=== PATIENT | male | born 1960 | race Caucasian/White ===

== ENCOUNTER → 2017-08-14 | Outpatient (CLI) | payer BC, SELFPAY | PROVIDERS: Visit Provider Family Medicine | DX: I10 Essential (primary) hypertension (principal); E78.5 Hyperlipidemia, unspecified | CPT/HCPCS: 36415; 80053; 80061 ==

== ENCOUNTER → 2018-10-28 11:33 | Outpatient (CLI) | payer BC, SELFPAY ==
--- NOTE | 2018-10-28 11:38 | XR_ITS ---
XR chest 2V HISTORY: ITS.REASON: BRONCHITIS ORDERING PHYSICIAN: Erika Bernabe PATIENT AGE: 58 years COMPARISON: 09/03/2016 FINDINGS: The cardiomediastinal silhouette and pulmonary vascularity are within normal limits. There is elevated left hemidiaphragm with left basilar atelectasis. The lungs are otherwise clear. No acute bony findings. IMPRESSION: Elevated left hemidiaphragm with left basilar atelectasis. No change with no acute finding.
== END ==
PROVIDERS: PCP Family Medicine; Visit Provider Nurse Practitioner Family
DX: J40 Bronchitis, not specified as acute or chronic (principal)
CPT/HCPCS: 71046

== ENCOUNTER → 2018-11-27 10:25 | Outpatient (CLI) | payer BC, SELFPAY ==
--- NOTE | 2018-11-27 10:35 | XR_ITS ---
XR chest 2V HISTORY: Follow-up abnormal chest x-ray, cough, bronchitis ITS.REASON: ABNORMAL CXR ORDERING PHYSICIAN: Erika Bernabe PATIENT AGE: 58 years COMPARISON: 10/28/2018 FINDINGS: There remains elevated left hemidiaphragm with left basilar atelectatic changes. Cardiovascular structures are unremarkable and the lungs are clear bilaterally. No acute bony findings. IMPRESSION: No change elevated left hemidiaphragm with left basilar atelectasis. No change with no acute finding
== END ==
PROVIDERS: PCP Family Medicine; Visit Provider Nurse Practitioner Family
DX: R93.89 Abnormal findings on diagnostic imaging of other specified body structures (principal)
CPT/HCPCS: 71046

== ENCOUNTER → 2019-07-07 09:47 | Outpatient (CLI) | payer BC, SELFPAY ==
--- NOTE | 2019-07-07 09:52 | XR_ITS ---
PROCEDURE: XR CHEST 2V CLINICAL HISTORY: RT RIB PAIN Right-sided chest pain COMPARISON: CXR CHEST(2 VIEWS-NOT PORTABLE) from 09/03/2016 CXR2V XR chest 2V from 10/28/2018 CXR2V XR chest 2V from 11/27/2018 XR RIBS RT 2V from 07/07/2019 FINDINGS: Left hemidiaphragm is elevated with left basilar atelectatic changes. The remaining lungs are clear. Unremarkable cardiovascular structures Multiple views of the right ribs show mildly displaced fractures involving the anterolateral aspect of the right, 5th, 6th, 7th, and 8th ribs. No obvious pneumothorax.. There is a small right effusion IMPRESSION: Mildly displaced fractures of the right 5th through 8th ribs with small right pleural effusion Dictated by: Chavez Huber MD 07/07/2019 11:31 Electronically signed by Chavez Huber MD in [place] 07/07/2019 11:31
== END ==
PROVIDERS: PCP Family Medicine; Visit Provider Physician Assistant
DX: R07.81 Pleurodynia (principal)
CPT/HCPCS: 71046; 71100

== ENCOUNTER → 2019-10-05 09:11 | Outpatient (CLI) | payer BC, SELFPAY ==
--- NOTE | 2019-10-05 09:17 | XR_ITS ---
PROCEDURE: XR FOOT WT BEARING RT 3V CLINICAL INDICATION: foot pain COMPARISON: FTL3 FOOT-LT-3 VIEWS from 07/04/2015 views were obtained weight-bearing. FINDINGS: No fracture or dislocation. No lytic or blastic change. There is normal mineralization. There is mild osteoarthritis at the 1st metatarsophalangeal joint. Degenerative plantar calcaneal spurring is noted. 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 Other findings:None. IMPRESSION: No acute findings. Dictated by: Gerard Hair 10/05/2019 12:48 Electronically signed by Gerard Hair in [place] 10/05/2019 12:48
--- NOTE | 2019-10-05 09:17 | XR_ITS ---
PROCEDURE: XR FOOT WT BEARING LT 3V CLINICAL INDICATION: foot pain COMPARISON: FTL3 FOOT-LT-3 VIEWS from 07/04/2015 views were obtained FINDINGS: No fracture or dislocation. No lytic or blastic change. There is normal mineralization. Weight-bearing. There is mild hallux valgus deformity and there is [id number] osteoarthritis at the 1st metatarsophalangeal joint. 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 Other findings:A tiny degenerative plantar calcaneal spur is noted. IMPRESSION: No acute findings. Hallux valgus deformity with osteoarthritis and other degenerative findings as described. Dictated by: Gerard Hair 10/05/2019 12:50 Electronically signed by Gerard Hair in [place] 10/05/2019 12:50
== END ==
PROVIDERS: PCP Family Medicine; Visit Provider Podiatrist
DX: M79.672 Pain in left foot (principal); M79.671 Pain in right foot
CPT/HCPCS: 73630

== ENCOUNTER → 2019-10-12 12:31 | Outpatient (CLI) | payer BC, SELFPAY ==
--- NOTE | 2019-10-12 12:31 | US_ITS ---
APPROVED REPORT Exam Type: Lower Extremity Segmental Pressures [employer] Specialist: Miryam Prince RVT Indications Cold extremities Risk Factors Hypertension Hyperlipidemia Pressures/Indices Right Indices Left Indices Brachial 194.00 mmHg Brachial 194.00 mmHg Low Thigh 200.00 mmHg 1.03 Low Thigh 196.00 mmHg 1.01 Calf 210.00 mmHg 1.08 Calf 201.00 mmHg 1.04 Ankle(PT) 211.00 mmHg 1.09 Ankle(PT) 194.00 mmHg 1.00 Ankle(DP) 205.00 mmHg 1.06 Ankle(DP) 204.00 mmHg 1.05 Digit 144.00 mmHg 0.74 Digit 140.00 mmHg 0.72 Findings RT DWIGHT:1.09 LT DWIGHT:1.00 RT TBI:0.74 LT TBI:0.72 NORMAL PULSES BILATERAL NORMAL WAVEFORMS BILATERAL Conclusion Normal appearing resting noninvasive lower extremity arterial study. Electronically signed by : Chavez Huber MD 10/13/2019 18:09:50
== END ==
PROVIDERS: PCP Family Medicine; Visit Provider Podiatrist
DX: R09.89 Other specified symptoms and signs involving the circulatory and respiratory systems (principal); R20.8 Other disturbances of skin sensation
CPT/HCPCS: 93923

== ENCOUNTER → 2021-03-16 11:15 | Outpatient (CLI) | payer BC, SELFPAY ==
--- NOTE | 2021-03-16 11:20 | XR_ITS ---
PROCEDURE: XR HIP LT 2-3V W/PELVIS CLINICAL INDICATION: LT HIP PAIN COMPARISON: No exams were available for comparison FINDINGS: AP view of the pelvis shows mild osteoarthritic changes of both hips. AP and abduction ule views of the left hip show no fracture or dislocation. No lytic or blastic change. IMPRESSION: Mild osteoarthritis of the hips Dictated by: Chavez Huber MD 03/16/2021 12:34 Chavez Huber MD in [place] 03/16/2021 12:34
== END ==
PROVIDERS: PCP Family Medicine; Visit Provider Family Medicine
DX: M25.552 Pain in left hip (principal)
CPT/HCPCS: 73502

== ENCOUNTER 2021-04-12 11:15 | Emergency (ER) | payer BC, SELFPAY ==
[2021-04-12 13:13] VITALS: BP 132/67; PULSE 76; RESP 16; TEMP 36.9; O2SAT 98; BMI 29.7
[2021-04-12 13:30] VITALS: BP 130/71; PULSE 71; RESP 18; TEMP 36.8; O2SAT 97
--- NOTE | 2021-04-12 13:31 | HMH.EDUTC ---
[facility] Disposition Clinical Impression: Encounter for laboratory testing for COVID-19 virus Sinusitis Qualifiers: Sinusitis location: unspecified location Chronicity: unspecified Qualified Code(s): J32.9 - Chronic sinusitis, unspecified Disposition: Home, Self-Care Condition on Discharge: Good Instructions: Sinusitis, DI for Sinusitis Additional Instructions: *Monitor Temp, Over the counter Motrin or Tylenol as directed/as needed Tylenol every 4 hours and Motrin every 6 hours (as long as your family doctor has told you that you can take it) for fever or pain. and straight to ER if unable to lower temp less than 101.0 after medication given *Warm salt water gargles may help to soothe the throat *Throat Lozenges *Warm fluids like tea with honey may help to soothe the throat *Sleep elevated *Humidifier/Vaporizer *Take medication as prescribed Follow up IMMEDIATELY for new or worsening symptoms or no Noticeable improvement over the next 48-72 hours. 911 for difficulty breathing or swallowing You were tested for today for COVID19 your test result should be back in the next 24-48 hours, you may call to the [facility] to see if your test results are back in the next 48 hours [phone] [facility] hours are 9am-9pm You was given a handout with instructions for Self Quarantine and Self isolation for while you wait on test results and what to do if they are positive If you are positive the Health Dept will be contacting you also Make sure to take your Vitamins Vit. C Vit D and Zinc if you can take them Prescriptions: Amoxicillin/Potassium Clav [Augmentin 875-125 Tablet] 1 tab PO Q12H 7 Days #14 tab Transmission Status: Received by [id number] Benzonatate [Tessalon Perle 100mg Cap*] 100 mg PO TID PRN #30 cap PRN Reason: Cough Transmission Status: Received by [id number] Referrals: Cristino Padgett MD [Primary Care Provider] - Forms: Work/School Release Time of Disposition: 13:40 Medical Decision Making - Kendrick Inquiry Pt receiving controlled substance: No Kendrick was queried for this patient: No Vital Signs: 04/12/21 13:13 04/12/21 13:30 Temperature 98.4 F 98.3 F Temperature Source Temporal Artery Scan Oral Pulse Rate 71 Pulse Rate [Right Brachial] 76 Respiratory Rate 16 18 Blood Pressure 130/71 Blood Pressure [Right Arm] 132/67 Blood Pressure Mean [Right Arm] 88 Blood Pressure Source [Right Arm] Automatic Cuff Blood Pressure Position [Right Arm] Sitting 02 Sat by Pulse Oximetry 98 Oxygen Delivery Method Room Air Room Air [facility] HPI - General Stated complaint: cough Time Seen by Provider: 04/12/21 13:32 Mode of Arrival: Ambulatory Source of Information: Patient Limitations: No Limitations Description of Symptoms (Recalled from Triage Doc. by RN): cough, chest congestion, sinus drainage HEENT Symptoms (Recalled from RN notes): No Resp Symptoms (Recalled from RN notes): Yes Skin Symptoms (Recalled from RN notes): Yes MS Symptoms (Recalled from RN notes): No Functional Status (Recalled from RN notes): n/a - History of Present Illness Provider Complaint: Patient state that he has been having trouble out of his sinuses for a couple of weeks State that it has been drianing in the back of his throat and making his throat sore and feels like pressure in his ears State that he came in to get checked checked out State that he has not been around anyone that he is aware of with COVID but still wanted to get tested - Related Data Home Medications Medication Instructions Recorded Confirmed atorvastatin 40 mg tablet 20 mg PO DAILY tab 10/05/19 04/12/21 lisinopril 20 mg tablet 20 mg PO DAILY tab 10/05/19 04/12/21 meloxicam 15 mg tablet 15 mg PO DAILY tab 10/05/19 04/12/21 Previous Rx's Medication Instructions Recorded diclofenac sodium 1 % topical gel 4 g TOPICAL QID PRN #100 g 10/05/19 Amoxicillin/Potassium Clav 1 tab PO Q12H 7 Days #14 tab 04/12/21 [Augmentin 875-125 Tablet*
== END 2021-04-12 13:49 | disposition home or self-care (01) ==
PROVIDERS: Emergency Provider Nurse Practitioner; PCP Family Medicine
DX: J32.9 Chronic sinusitis, unspecified (principal); Z20.822 Contact with and (suspected) exposure to COVID-19
CPT/HCPCS: 99202; G0463; U0003

== ENCOUNTER → 2021-04-24 08:03 | Outpatient (CLI) | payer BC, SELFPAY ==
--- NOTE | 2021-04-24 08:08 | MR_ITS ---
PROCEDURE INFORMATION: Exam: MR Left Lower Extremity Joint Without Contrast; Hip Exam date and time: 04/24/2021 8:08 AM Age: 60 years old Clinical indication: Patient HX: Left hip pain x 2 months without known injury. ; Additional info: Lt hip pain TECHNIQUE: Imaging protocol: MR of the Left lower extremity joint without contrast. Exam focused on the hip. COMPARISON: 1. CR XR HIP LT 2-3V W/PELVIS 03/16/2021 11:[address] ABD PELVIS W/ CONTRAST 04/09/2017 9:30 AM (report not available) FINDINGS: Limitations: The pelvis is incompletely included on axial and sagittal sequences due to being a hip protocol. Bones and cartilage: There is extensive abnormal bone marrow signal extending from the lower lumbar spine, throughout the pelvis, and into the proximal femurs. The appearance is most consistent with metastatic disease. Tumor extends through the left iliac bone cortex laterally in the supra-acetabular region and into the adjacent soft tissues. On the coronal sequence where more of the pelvis is included, there appears to be additional extension of tumor through the medial left ilium and into the intrapelvic soft tissues. Joint spaces: No significant joint effusion. Labrum: Unremarkable. No tear. TENDONS: Tendons of iliopsoas group: Unremarkable. No evidence of tear. Tendons of medial compartment of thigh: Unremarkable. No evidence of tear. Tendons of lateral rotators of hip: Unremarkable. No evidence of tear. Tendons of gluteal group: Unremarkable. No evidence of tear. Muscles: Unremarkable. Soft tissues: See Bones and cartilage finding. Moderate edema involves the subcutaneous fat. Intraperitoneal space: A mild amount of free fluid is present in the pelvis, which is more than typically seen in a male patient. Bladder: The bladder wall is diffusely thickened, which has a nonspecific appearance. Other findings: Reassessment of significant sigmoid colon abnormalities seen in 2017 is significantly limited due to peristalsis. 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 COMMENTS: A request for a conference call with the ordering provider or ordering provider's care team was submitted at 12:22 PM EDT on 04/25/2021.
== END ==
PROVIDERS: PCP Family Medicine; Visit Provider Orthopaedic Surgery
DX: M25.552 Pain in left hip (principal)
CPT/HCPCS: 73721

== ENCOUNTER → 2021-04-25 10:32 | Outpatient (CLI) | payer BC, SELFPAY ==
--- NOTE | 2021-04-25 10:34 | CA_ITS ---
APPROVED REPORT EXAM: Comprehensive 2D, Doppler, and color-flow Echocardiogram Options Trader: Vonda Mari, RCS, RVS Ht: 5 ft 9 in Wt: 203lbs BSA: 2.08 BP: 132/67 mmHg Indications: HTN, HLD, Murmur Echo Enhancing Agent Comments: Low parasternal windows. 2D Dimensions IVSd 0.82 cm LVEF (Visual) 73.60 % PWd 0.94 cm LA Volume 80.80 mL LVDd 4.43 cm LA Volume Index 38.80 mL/m2 (M/F) 16-34 LVDs 2.80 cm Aortic Root 3.11 cm Left Atrium 4.04 cm LVOT 2.04 cm (M/F) 1.5-2.5 LV Diastology E Decel Time 237.00 (160-240 msec) E/A Ratio 1.33 MED E' 12.30 (< 7 cm/sec) MED A' 13.20 cm/s E'/MED E' Ratio 10.59 (>14) LAT E' 10.20 (<10 cm/sec) LAT A' 6.90 cm/s E/LAT E' Ratio 12.77 (>14) Aortic Valve LVOT Max 145.00 (70-110 cm/s) LVOT VTI 28.68 cm AoV Peak Jose. 212.00 (50-130 cm/s) AO Peak GR. 17.90 mmHg AO Mean GR. 9.20 (<5 mmHg) AO VTI 40.55 (18-25 cm) DANNIELLE (VTI) 2.31 (2.5-4.5 cm2) Mitral Valve MV A Velocity 98.00 (40-130 cm/s) E/A Ratio 1.33 MV Decel. Time 237.00 (160-240 ms) Pulmonary Valve PV Peak Velocity 81.00 (50-150 cm/s) Tricuspid Valve TR P. Velocity 343.00 cm/s RAP Estimate 10.00 mmHg RVSP 56.90 mmHg Left Ventricle Left atrium is mildly enlarged, left ventricle is normal size, mild concentric left ventricular hypertrophy, visually estimated ejection fraction 55% with no regional wall motion abnormality, diastolic parameters are within normal range. Right Ventricle Right atrium and right ventricle are mildly enlarged with normal contractility. Aortic Valve Aortic valve is thickened and calcified without Doppler evidence of aortic stenosis or aortic insufficiency. Mitral Valve Mitral valve is grossly normal, there is mild mitral regurgitation. Tricuspid Valve Tricuspid grossly normal, there is mild tricuspid regurgitation, calculated ventricular systolic pressure is 55 mmHg. Pulmonic Valve Pulmonic valve is poorly visualized. Great Vessels Aortic root is normal size. Inferior vena cava is mildly dilated without significant inspiratory collapse. Pericardium No significant pericardial effusion noted. Conclusion 1. Mild biatrial enlargement, normal left ventricular size, visually estimated ejection fraction 85% with no regional wall motion abnormality, diastolic parameters are within normal range. 2. Mildly enlarged right ventricle with normal contractility. 3. Mild mitral and tricuspid regurgitation, calculated right ventricular systolic pressure is 55 mmHg. 4. No significant pericardial effusion noted, inferior vena cava is mildly dilated with significant inspiratory collapse. Electronically signed by : Deshawn Ponce MD 04/26/2021 14:56:50
== END ==
PROVIDERS: PCP Family Medicine; Visit Provider Family Medicine
DX: I10 Essential (primary) hypertension (principal)
CPT/HCPCS: 93306

== ENCOUNTER → 2021-04-26 12:06 | Outpatient (CLI) | payer BC, SELFPAY ==
--- NOTE | 2021-04-26 12:12 | CT_ITS ---
PROCEDURE: CT ABDOMEN PELVIS w CON CLINICAL INDICATION: STAGE 4 METASTATIC BONE DISEASE, RT HIP PAIN COMPARISON: CT ABDPELW CT ABD PELVIS W/ CONTRAST from 04/09/2017 CR XR HIP LT 2-3V W/PELVIS from 03/16/2021 MR MR HIP LT WO CON from 04/24/[address] CHEST WO/W CON from 04/26/2021 TECHNIQUE: IV Contrast: 75ML Isovue 370 Oral Contrast None Axial images obtained with sagittal and coronal reformats. All CT scans at the facility use one or more dose reduction, viz: automated exposure control, ma/kV adjustment per patient size (including targeted exams where dose is matched to indication, i.e. head), or iterative reconstruction technique. FINDINGS: The liver, spleen, pancreas, adrenal glands, and kidneys show no evidence of mass. No peripancreatic inflammation evident. Focal fatty infiltration is present along the falciform ligament of the liver. There is mild splenomegaly at 14 cm. No retroperitoneal mass evident. Unremarkable appendix. No intra-abdominal or pelvic adenopathy. There are scattered colonic diverticula but no evidence of diverticulitis. Sigmoid colon is mildly thickened diffusely which may be due to nondistention. Colitis is also consideration. Prostate has an unremarkable appearance other than some central coarse calcification. There is mild thickening of the urinary bladder wall slightly greater anteriorly Compression deformity involves the superior endplate of L4 with loss of height centrally of approximately 20 percent. There is also concave deformity of the inferior endplate of L2 which may only be due to Schmorl's node. MRI demonstrated as diffuse infiltrative bony marrow process which is better demonstrated by MRI as compared to CT. There is however an asymmetric focal lytic lesion involving the left ilium in the super acetabular region measuring 2.9 cm with disruption of the cortex laterally.. There is an adjacent soft tissue component lateral to the lytic lesion measuring 3 cm AP and 1 cm transverse. This is consistent with a metastatic lesion. Multiple myeloma is also included in the differential diagnosis. There is mild diffuse subcutaneous edema. There is also a cortical defect involving the posterior and medial aspect of the ilium on the right measuring 2 cm.. There is a mottled appearance of the cortex involving the left ilium superiorly IMPRESSION: 1. Lytic foci involve the left super acetabular region laterally with a soft tissue component and the right ilium posteriorly as well as a mottled appearance of the bony cortex involving the left superior ilium. The diffuse bone marrow infiltration is not well demonstrated by CT. These findings are consistent with bony metastasis. Multiple myeloma is also included in the differential diagnosis 2. No evidence of intra-abdominal or pelvic metastasis. 3. Mild compression deformities of L4 and L2 which could be degenerative. MRI of the lumbar spine may confirm. 4. There is mild urinary bladder wall thickening which may be seen with incomplete distension, chronic outflow obstruction, or cystitis. Dictated by: Chavez Huber MD 04/26/2021 15:21 Chavez Huber MD in [place] 04/26/2021 15:21
[2021-04-26 12:46] LABS: Blood Urea Nitrogen 26 mg/dl (9-20); Estimated Glomerular Filt Rate 38 ml/min (>60); GFR (African American) 46 ML/MIN (>60)
--- NOTE | 2021-04-26 13:07 | CT_ITS ---
PROCEDURE: CT CHEST WO/W CON CLINCAL INDICATION: STAGE 4 MEDISTATIC BONE DISEASE, RT HIP PAIN COMPARISON: CT CT ABDOMEN PELVIS WO/W CON from 04/26/2021 TECHNIQUE: IV Contrast: 75ml Isovue 370 Axial images obtained with sagittal and coronal reformats. All CT scans at the facility use one or more dose reduction, viz: automated exposure control, ma/kV adjustment per patient size (including targeted exams where dose is matched to indication, i.e. head), or iterative reconstruction technique. FINDINGS: No mediastinal or hilar mass is evident. There are coronary artery calcifications. There is a small left-sided posterior layering pleural effusion. There is trace right effusion. Mild atelectatic changes are present in both lower lobes. There is elevated left hemidiaphragm with atelectatic change in the left lung base and lingula. There is some consolidation in the left lower lobe posteriorly adjacent to the elevated hemidiaphragm. No suspicious pulmonary nodules are identified. There is mild bilateral gynecomastia. MRI demonstrated diffuse bone marrow infiltrative process within the pelvis. These type of bone marrow infiltrative processes are much better evaluated with MRI. There does however appear to be diffuse osteopenia of the generalized bony structures. An ill-defined lytic lesion is present involving the humeral head on the left at 2.3 cm. An expansile lytic lesion involves the anterior aspect of the left 3rd rib with an overlying soft tissue component resulting in pleural thickening anteriorly. The lytic component measures 1.5 cm. Decreased attenuation is present involving the T6 vertebral body possibly due to an underlying lytic lesion. There is a Schmorl's node superiorly at this level. There are anterior osteophytes present. IMPRESSION: 1. Small left-sided pleural effusion with underlying atelectatic changes and consolidation in the left lung base posteriorly. Trace right effusion. 2. Diffuse decrease in bone marrow density which may correlate to the infiltrative process seen on the recent MRI. MRI is much better at evaluation of bone marrow infiltrative process than CT. There are focal lytic lesions involving the left humeral head in the anterior aspect of the left 3rd rib and possibly the T6 vertebral body. 3. No suspicious pulmonary nodules apparent. Dictated by: Chavez Huber MD 04/26/2021 14:46 Chavez Huber MD in [place] 04/26/2021 14:46
== END ==
PROVIDERS: PCP Family Medicine; Visit Provider Orthopaedic Surgery
DX: C79.51 Secondary malignant neoplasm of bone (principal); M25.551 Pain in right hip
CPT/HCPCS: 36415; 71260; 71270; 74177; 74178; 82565; 84520; Q9967

== ENCOUNTER → 2021-04-27 08:17 | Outpatient (CLI) | payer BC, SELFPAY ==
--- NOTE | 2021-04-27 08:28 | NM_ITS ---
PROCEDURE: NM BONE SCAN WHOLE BODY CLINICAL INDICATION: STAGE 4 BONE DISEASE, RT HIP PAIN COMPARISON: CT CT ABDOMEN PELVIS W CON from 04/26/[address] CHEST W CON from 04/26/2021 CR XR FEMUR RT 2V from 04/27/2021 FINDINGS: Anterior and posterior images are obtained of the entire skeleton. Studies compared to previous chest abdomen and pelvis CT of 04/26/2021. Increased activity is present involving the AC joints on both sides slightly greater on the right which may be degenerative nature. Increased activity is present at the anterior aspect of the left 2nd and 3rd rib. There is a nondisplaced fracture at the anterior aspect of the left 2nd rib on the CT scan not previously identified. There may be a subtle lytic lesion at this area as well. Lytic lesion with soft tissue component noted anteriorly at the 3rd rib on the CT scan. Increased activity is present in the left acetabular region corresponding to the lytic lesion noted on CT there is also focal increased activity in the distal right femur shaft. Radiographs of this area are unremarkable. Increased activity also noted at L4 corresponding to the compression deformity. IMPRESSION: Focal increased activity of the left 2nd and 3rd rib, the left acetabulum, and the distal shaft of the femur on the right consistent with metastatic disease. There is also increased activity at the L4 vertebral body which could be due to acute compression fracture and or metastatic component Lesions of the right left ilium as noted on the CT scan do not demonstrate increased activity possibly due to a hyper active osteolytic component Dictated by: Chavez Huber MD 04/27/2021 15:47 Chavez Huber MD in [place] 04/27/2021 15:47
--- NOTE | 2021-04-27 12:56 | XR_ITS ---
PROCEDURE: XR FEMUR RT 2V CLINICAL INDICATION: SPOT ON BONE SCAN. MET CANCER. COMPARISON: No exams were available for comparison FINDINGS: Bone scan demonstrated focal area of increased activity in the distal shaft of the femur. There is vague decreased density in the distal shaft of the femur which may correspond to the area of increased metabolic uptake suggesting a small lytic lesion at approximately 3.7 by 1.2 cm . No acute fracture or dislocation There are mild osteoarthritic changes of the hip and knee Other findings:None. IMPRESSION: Vague lytic lesion of the distal shaft of the femur corresponding to the center graphic abnormality consistent with a metastatic focus. No acute fracture. Dictated by: Chavez Huber MD 04/27/2021 16:33 Chavez Huber MD in [place] 04/27/2021 16:33
== END ==
PROVIDERS: PCP Family Medicine; Visit Provider Orthopaedic Surgery
DX: C79.51 Secondary malignant neoplasm of bone (principal); M25.551 Pain in right hip
CPT/HCPCS: 73552; 78306; A9503